=== PATIENT | female | born 1955 | race Caucasian/White ===

== ENCOUNTER → 2022-12-25 10:58 | Outpatient (BNVA) | payer OTHER, SELFPAY | PROVIDERS: Visit Provider Internal Medicine | DX: S60.211A Contusion of right wrist, initial encounter (principal); S63.512A Sprain of carpal joint of left wrist, initial encounter; S20.214A Contusion of middle front wall of thorax, initial encounter; Y04.0XXA Assault by unarmed brawl or fight, initial encounter | CPT/HCPCS: 73110; 73130; 99203 ==